=== PATIENT | male | born 1965 | race Caucasian/White ===

== ENCOUNTER 2019-12-10 04:53 | Emergency (ER) | payer MEDICAID ==
[~2019-12-10] VITALS: Ht 180.3 cm; Wt 113.4 kg
[2019-12-10 04:57] VITALS: BP_SYST 148
--- NOTE | 2019-12-10 05:03 | NUR ---
AMBULATED TO BED 5
[2019-12-10] MEDS ORDERED: FAMOTIDINE 20 MG TABLET PO ONE (05:30)
[2019-12-10] MEDS ORDERED: predniSONE 20 MG TABLET PO ONE (05:30)
--- NOTE | 2019-12-10 05:31 | NUR ---
DR THOMPSON TO EXAM PT WITH C/O FACIAL SWELLING
[2019-12-10 05:50] VITALS: BP_SYST 138
--- NOTE | 2019-12-10 05:53 | NUR ---
meds given po as ordered
--- NOTE | 2019-12-10 05:53 | NUR ---
PT DISCHGED WITH RX AND AFTERCARE STABLE
== END 2019-12-10 05:50 | disposition home or self-care (01) ==
LOC: SED 04:53
DX: T78.40XA Allergy, unspecified, initial encounter (principal); L50.9 Urticaria, unspecified; R03.0 Elevated blood-pressure reading, without diagnosis of hypertension; K21.9 Gastro-esophageal reflux disease without esophagitis; Z88.6 Allergy status to analgesic agent; X58.XXXA Exposure to other specified factors, initial encounter
CPT/HCPCS: 99283; J7512

== ENCOUNTER 2022-05-01 02:12 | Emergency (ER) | payer MEDICAID ==
[~2022-05-01] VITALS: Ht 177.8 cm; Wt 113.4 kg
[2022-05-01 02:20] VITALS: BP_SYST 141
--- NOTE | 2022-05-01 02:25 | NUR ---
DR. WHITE AT BEDSIDE WITH PATIENT FOR MSE.
--- NOTE | 2022-05-01 02:35 | NUR ---
Patient to ER bed 06 to gown for evaluation. Side rails up. Report given to GEE IQBAL.
--- NOTE | 2022-05-01 02:40 | NUR ---
PT C/O NUMBNESS TO LEFT ARM AND WENT TO THE RIGHT ARM. PT STATED IT WOKE HIM UP AND HE WAS NOT SLEEPING ON IT. NAD, EVEN UNLABORED RESPIRATIONS, HOOKED UP TO MONITOR, VSS.
[2022-05-01] MEDS ORDERED: LORazepam 1 MG TABLET PO ONE (02:45)
--- NOTE | 2022-05-01 03:22 | NUR ---
PT DECLINES ATIVAN, NAD, VSS, EVEN UNLABORED RESPIRATIONS PT STATES NUMBNESS IS GONE AND WOULD LIKE TO GO HOME
[2022-05-01 03:36] VITALS: BP_SYST 120
--- NOTE | 2022-05-01 03:37 | NUR ---
Patient given written and verbal discharge instructions and verbalizes understanding. ER MD discussed with patient the results and treatment provided. Patient in stable condition. ID arm band removed. Patient educated on radial nerve palsy and to follow up with PMD. Opportunity for questions provided and answered. Medication side effect fact sheet provided.
== END 2022-05-01 03:37 | disposition home or self-care (01) ==
LOC: SED 02:12
DX: G56.31 Lesion of radial nerve, right upper limb (principal); F41.9 Anxiety disorder, unspecified; Z88.8 Allergy status to other drugs, medicaments and biological substances; Z79.899 Other long term (current) drug therapy
CPT/HCPCS: 99283

== ENCOUNTER 2022-05-27 17:30 | Emergency (ER) | payer MEDICAID ==
[~2022-05-27] VITALS: Ht 177.8 cm; Wt 113.4 kg
[2022-05-27 17:35] VITALS: BP_SYST 171
--- NOTE | 2022-05-27 19:14 | NUR ---
Pt brought by self, A&Ox4, pt presents to ER with anxiety and high blood pressure, pt is being treated for UTI and anxiety, skin pink and warm, cap refill <3, VSS
--- NOTE | 2022-05-27 21:03 | NUR ---
Patient to ER bed CASTLE to gown for evaluation. Side rails up. Report given to CYDNEY FLYNN.
--- NOTE | 2022-05-27 21:07 | NUR ---
ER MD Perez examing patient at this time.
--- NOTE | 2022-05-27 21:25 | NUR ---
Patient A/Ox4, VSS, ambulatory, resp even and unlabored. Skin warm, dry, intact, color wnl for ethnicity. Patient reports pain 0/10 at this time. Patient denies Chest pain, headache, dizziness, visual disturbances, or pain at this time. Patient states "I feel a lot better right now, honestly I think it was my anxiety really getting to me. I've been going through a lot of stress in my life and it feels like my blood pressure goes up everytime I get anxiety. But I feel better right now." Nad noted at this time.
[2022-05-27] MEDS ORDERED: ALPR0.5T PO (22:30)
[2022-05-27 22:45] VITALS: BP_SYST 141
--- NOTE | 2022-05-27 22:45 | NUR ---
Patient given written and verbal discharge instructions and verbalizes understanding. ER MD discussed with patient the results and treatment provided. Patient in stable condition. ID arm band removed. Rx of XANAX given. Patient educated on pain management and to follow up with PMD. Pain Scale 0/10. Opportunity for questions provided and answered. Medication side effect fact sheet provided. PATIENT A/Ox4, VSS, AMBULATORY, RESP EVEN AND UNLABORED. PATIENT ACCOMPANIED BY SELF AND IN STABLE CONDITION UPON DISCHARGE.
== END 2022-05-27 22:45 | disposition home or self-care (01) ==
LOC: SED 17:30
DX: I10 Essential (primary) hypertension (principal); F43.9 Reaction to severe stress, unspecified; Z79.899 Other long term (current) drug therapy
CPT/HCPCS: 93005; 99283

== ENCOUNTER 2023-05-05 10:21 | Emergency (ER) | payer MEDICAID ==
[~2023-05-05] VITALS: Ht 177.8 cm; Wt 112.5 kg
[2023-05-05 10:21] VITALS: BP_SYST 134; PULSE 102; RESP 18; TEMP 97.9; O2SAT 98
[~2023-05-05 10:21] MED LIST: ALPR0.5T PO
[2023-05-05 11:19] LABS: BASOPHILS % (AUTO) 0.5 % (0.0-2.0); HEMATOCRIT 50.8 % (36-54); HEMOGLOBIN 17.4 g/dL (14.0-18.0); LYMPHOCYTES # (AUTO) 1.2 K/uL (1.0-5.5); LYMPHOCYTES % (AUTO) 15.3 % (20.5-51.5); MEAN CORPUSCULAR HEMOGLOBIN 30 pg (27-31); MEAN CORPUSCULAR HGB CONC 34 % (32-36); MEAN CORPUSCULAR VOLUME 89 fL (79.0-98.0); MONOCYTES # (AUTO) 0.4 K/uL (0.0-1.0); MONOCYTES % (AUTO) 5.7 % (1.7-9.3); NEUTROPHILS # (AUTO) 6.1 K/uL (1.8-7.7); NEUTROPHILS % (AUTO) 78.5 % (40.0-70.0); PLATELET COUNT (AUTO) 202 K/uL (130-430); RED BLOOD CELL COUNT(AUTO) 5.73 MIL/uL (4.2-6.2); RED CELL DISTRIBUTION WIDTH 14.1 % (9.0-15.0); WHITE BLOOD COUNT (AUTO) 7.8 K/uL (4.8-10.8)
[2023-05-05 11:53] LABS: CALCIUM 9.6 mg/dL (8.4-11.0); CREATININE 1.27 mg/dL (0.55-1.30); POTASSIUM 4.3 mmol/L (3.5-5.1)
[2023-05-05 11:57] LABS: ALBUMIN 4.4 g/dL (3.4-4.8); BILIRUBIN,DIRECT 0.2 mg/dL (0.0-0.3); TOTAL BILIRUBIN 1.5 mg/dL (0.0-1.0)
[2023-05-05] MEDS: ONDANSETRON HCL 4 MG/2 ML VIAL IVP ONE (12:08)
[2023-05-05 12:42] LABS: BILIRUBIN,URINE NEGATIVE (NEGATIVE); BLOOD, URINE 1+ (NEGATIVE); CLARITY/URINE CLEAR (CLEAR); COLOR,URINE YELLOW (YELLOW); GLUCOSE,URINE NEGATIVE (NEGATIVE); KETONES,URINE NEGATIVE (NEGATIVE); LEUKOCYTE ESTERASE ,URINE NEGATIVE (NEGATIVE); NITRITE, URINE NEGATIVE (NEGATIVE); PROTEIN URINE NEGATIVE (NEGATIVE); UROBILINOGEN,URINE 0.2 (0.2-1.0)
[2023-05-05 13:01] LABS: BACTERIA,URINE RARE /HPF (None Seen); MUCUS,URINE 1+ /LPF (None Seen); WBC,URINE 0-3 /HPF (0-3)
[2023-05-05] MEDS ORDERED: TAMS-11 PO (13:35)
[2023-05-05 13:40] VITALS: BP_SYST 134; PULSE 102; RESP 18; TEMP 97.9; O2SAT 98
== END 2023-05-05 13:40 | disposition home or self-care (01) ==
LOC: SED 10:21 → UNDOADMIN 11:39 → STU 11:39 → SED 13:40
DX: N43.3 Hydrocele, unspecified (principal); R35.0 Frequency of micturition; N50.811 Right testicular pain; Z88.6 Allergy status to analgesic agent; Z79.899 Other long term (current) drug therapy
CPT/HCPCS: 36415; 76870; 80048; 80076; 81000; 81001; 81015; 83690; 85025; 87491; 99284